=== PATIENT | female | born 1970 | race African-American/Black ===

== ENCOUNTER 2017-06-24 18:22 | Emergency (ER) | payer BC, OTHER ==
[2017-06-24 18:59] LABS: #Basophils 0.1 thou/uL (0.0-0.2); #Eosinphils 0.2 thou/uL (0.0-0.7); #Lymphocytes 2.8 thou/uL (1.20-3.40); #Monocytes 0.5 thou/uL (0.11-0.59); #Neutrophils 2.3 thou/uL (1.40-6.50); %Basophils 1.1 % (0.0-1.0); %Lymphocytes 47.8 % (21.0-51.0); Hematocrit 39.3 % (36.0-47.0); Mean Platelet Volume 6.1 fL (7.4-10.4); Red Blood Cell (RBC) Count 4.31 mill/uL (4.20-5.40); White Blood Cell (WBC) Count 5.9 thou/uL (4.8-10.8)
[2017-06-24 19:22] LABS: ALT (SGPT) 20 U/L (8-55); AST (SGOT) 19 U/L (5-34); Alkaline Phosphatase 75 U/L (40-150); Anion Gap 12 mmol/L (10-20); BUN (Urea Nitrogen) 18 mg/dL (7.0-18.7); Bilirubin, Total 0.3 mg/dL (0.2-1.2); Calc. Creatinine Clearance 0 mL/min (70-130); Calcium 9.6 mg/dL (7.8-10.44); Carbon Dioxide 28 mmol/L (22-29); Chloride 103 mmol/L (98-107); Estimated GFR-MDRD 60; Globulin 3.9 g/dL (2.4-3.5); Protein, Total 7.8 g/dL (6.0-8.3)
[2017-06-24 20:02] LABS: Troponin I Less than 0.010 ng/mL (< 0.028)
[2017-06-24] MEDS ORDERED: Dexamethasone 10 MG/ML VIAL ONE (20:15)
[2017-06-24] MEDS ORDERED: Lorazepam 2 MG/ML VIAL ONE (20:15)
[2017-06-24] MEDS ORDERED: Ketorolac Tromethamine 30 MG/ML VIAL ONE (20:15)
--- NOTE | 2017-06-24 20:59 | RAD ---
THREE VIEWS LEFT SHOULDER: 06/24/17 HISTORY: Left shoulder pain. AP internally, externally and scapular Y-views left shoulder is obtained. Three views left shoulder demonstrates no evidence of left shoulder fractures, subluxations or bony lesions. IMPRESSION: Normal three views left shoulder. POS: [facility]
--- NOTE | 2017-06-24 21:00 | RAD ---
AP VIEW CHEST: 06/24/17 Comparison made to previous exam from 01/01/15. AP view chest demonstrates the lungs to be well aerated. No evidence of active intrathoracic disease seen. No evidence of effusions, pneumonia, or pneumothorax seen. IMPRESSION: Unremarkable AP view chest. POS: [facility]
== END 2017-06-24 21:12 | disposition home or self-care (01) ==
LOC: ERS 18:22
DX: M54.12 Radiculopathy, cervical region (principal); I10 Essential (primary) hypertension; Z79.899 Other long term (current) drug therapy
CPT/HCPCS: 36415; 71010; 80053; 82553; 84484; 85025; 93005; 96374; 96375; J1100; J1885; J2060; J2270

== ENCOUNTER 2017-07-21 11:10 | Emergency (ER) | payer BC ==
[2017-07-21] MEDS ORDERED: Adenosine 6 MG/2 ML VIAL ONE (11:16)
[2017-07-21] MEDS ORDERED: HYDROcodone/Acetaminophen 5/325 mg Tablet ONE (11:45)
[2017-07-21 12:42] LABS: Hematocrit 44.8 % (36.0-47.0); Mean Platelet Volume 7.9 fL (7.4-10.4); Red Blood Cell (RBC) Count 4.77 mill/uL (4.20-5.40); White Blood Cell (WBC) Count 4.7 thou/uL (4.8-10.8)
[2017-07-21 12:58] LABS: Anion Gap 17 mmol/L (10-20); BUN (Urea Nitrogen) 11 mg/dL (7.0-18.7); Calc. Creatinine Clearance 0 mL/min (70-130); Calcium 9.9 mg/dL (7.8-10.44); Carbon Dioxide 19 mmol/L (22-29); Chloride 112 mmol/L (98-107); Estimated GFR-MDRD 74
[2017-07-21 13:14] LABS: Neutrophil 37 % (42-75)
== END 2017-07-21 15:01 | disposition home or self-care (01) ==
LOC: ERS 11:10
DX: R00.0 Tachycardia, unspecified (principal); I10 Essential (primary) hypertension
CPT/HCPCS: 80048; 82553; 84484; 85025; 93005; 96360; J0153

== ENCOUNTER 2017-10-11 07:48 | Outpatient (CLI) | payer BC | END 2017-10-11 07:49 | disposition home or self-care (01) | LOC: BICMRI 07:48 | PROVIDERS: ATTEND Orthopaedic Surgery | DX: M25.512 Pain in left shoulder (principal); M19.012 Primary osteoarthritis, left shoulder; M75.82 Other shoulder lesions, left shoulder ==

== ENCOUNTER 2017-10-22 10:15 | Day surgery (SDC) | payer BC ==
[2017-10-21 10:32] VITALS: BMI 40.7
[2017-10-22] MEDS ORDERED: Fentanyl 100 MCG/2 ML VIAL ONE (11:52)
--- NOTE | 2017-10-22 14:03 | OP ---
DATE OF PROCEDURE: 10/22/2017 PROCEDURES: Esophagogastroduodenoscopy with biopsy, colonoscopy with biopsy. INDICATION FOR PROCEDURE: GERD, dysphagia, screening for malignant neoplasm of the colon. DESCRIPTION OF PROCEDURE: After the risks and benefits of the procedure were explained including ris ks of bleeding, infection, perforation, reactions to anesthesia and/or pain, informed consent was obt ained. Patient was then taken to the endoscopy suite where deep sedation with propofol was administe red via the anesthesia support. The standard gastroscope was then introduced into the mouth with int ubation of the esophagus, stomach and proximal small intestine with findings listed below. The patie nt tolerated the procedure well with no immediate perioperative complications. FINDINGS: ESOPHAGUS: Normal appearing mucosa was seen in the proximal and mid esophagus. Nodular appearing mu cosa was seen at the gastroesophageal junction without evidence of erosions or ulcerations overlying the nodularity. Biopsies were taken from this region for histologic evaluation. Two slight linear e rosions were also seen in the distal esophagus extending approximately 2 cm in length, but not involv ing immediately surrounding esophageal folds. The diaphragmatic pinch was seen at 40 cm while the GE junction as well seen at 38 cm past the incisors noting a 2 cm hiatal hernia. STOMACH: Normal appearing mucosa was seen in the cardia, body, antrum and incisura. A 5-6 mm polyp was seen in the gastric fundus and completely removed with cold snare polypectomy. The polyp was ret rieved and placed in a specimen jar for evaluation. No abnormalities were seen on gastric retroflexi on. There was no evidence of erosions or ulcerations in the segment of the exam. DUODENUM: Normal appearing mucosa was seen in both the duodenal bulb and second portion of the duode num without evidence of erosions, ulcerations, or mass lesions. IMPRESSION: 1. A 5-6 mm gastric polyp, status post cold snare polypectomy and consistent with a fundic gland antoinette yp. 2. LA grade B reflux mediated esophagitis. 3. Nodularity of the gastroesophageal junction concerning for possible Brown's esophagus. 4. No evidence of patient's dysphagia was seen during this examination. COLONOSCOPY: After the risks and benefits of the procedure including risks of infection, bleeding, perforation, re action to anesthesia and/or pain were explained to the patient, informed consent was obtained. The p atient was then taken to the endoscopy suite where deep sedation with propofol via anesthesia support was administered. The standard colonoscope was then introduced into the rectum and advanced all the way to the terminal ileum without difficulty. The quality of the prep was excellent. The patient t olerated the procedure well with no immediate perioperative complications. Digital rectal exam normal. COLON FINDINGS: Normal appearing mucosa was seen in the terminal ileum, appendiceal orifice and ileo cecal valve. A 4-5 mm polyp was seen in the cecum and completely removed with cold snare polypectomy , it was retrieved and placed in a specimen jar for evaluation. A 6-7 mm polyp was seen in the dista l ascending colon and completely removed with cold snare polypectomy. The specimen was retrieved and placed in a specimen jar for evaluation. Multiple small polypoid appearing lymphoid aggregates were seen throughout the entire colon including the transverse, descending and sigmoid colons. Otherwise , the colon mucosa appeared normal in the transverse, descending, sigmoid colon, and rectum. On rect al retroflexion, small internal hemorrhoids (grade I) as well as hypertrophied anal papillae were see n. IMPRESSION: 1. A 4-5 mm cecal polyp, status post cold snare polypectomy. 2. A 6-7 mm ascending colon polyp seen in the distal ascending colon status post cold snare polypect rianna. 3. Innumerable small polypoid appearing lymphoid aggregate seen throughout the entire colon. 4. Small internal hemorrhoids. 5. Hypertrophied anal papillae. RECOMMENDATIONS: 1. Follow up within the GI Clinic in 2 weeks from this procedure. 2. We will follow up on the biopsy results. 3. Would continue PPI administration daily for evidence of reflux mediated esophagitis. 4. Would consider speech pathology evaluation for oropharyngeal dysphagia. 5. Repeat colonoscopy depending on pathology results. 6. Would recommend higher fiber diet given the presence of hemorrhoids.
[2017-10-22] MEDS ORDERED: Propofol 200 MG/20 ML VIAL ONE (14:32)
[2017-10-22] MEDS ORDERED: Lidocaine 1% PF 5 ML VIAL ONE (14:32)
== END 2017-10-22 14:00 | disposition home or self-care (01) ==
LOC: SDC 10:15
PROVIDERS: ATTEND Internal Medicine
PROC: 0DB68ZX Excision of Stomach, Via Natural or Artificial Opening Endoscopic, Diagnostic (ICD-10-PCS; principal; 2017-10-22)
PROC: 0DBK8ZX Excision of Ascending Colon, Via Natural or Artificial Opening Endoscopic, Diagnostic (ICD-10-PCS; principal; 2017-10-22)
PROC: 0DB58ZX Excision of Esophagus, Via Natural or Artificial Opening Endoscopic, Diagnostic (ICD-10-PCS; principal; 2017-10-22)
PROC: 0DBH8ZX Excision of Cecum, Via Natural or Artificial Opening Endoscopic, Diagnostic (ICD-10-PCS; principal; 2017-10-22)
DX: Z12.11 Encounter for screening for malignant neoplasm of colon (principal); K63.5 Polyp of colon; D12.2 Benign neoplasm of ascending colon; K31.7 Polyp of stomach and duodenum; K21.0 Gastro-esophageal reflux disease with esophagitis; K22.10 Ulcer of esophagus without bleeding; K64.0 First degree hemorrhoids; Z91.013 Allergy to seafood
CPT/HCPCS: 88305; 88312; 88313; J2001; J2704; J3010

== ENCOUNTER 2018-04-28 08:33 | Outpatient (CLI) | payer BC ==
--- NOTE | 2018-04-28 10:55 | RAD ---
THREE VIEWS LUMBAR SPINE: Indication: History of lumbar radiculopathy. Comparison: 02-11-08 FINDINGS: There is mild disc degenerative disease which has progressed from the prior exam. Vertebral bodies an d spinal alignment appear within normal limits. No acute fracture is evident. IMPRESSION: Mild disc degenerative disease of the lumbar spine. POS: [facility]
--- NOTE | 2018-04-28 10:59 | RAD ---
THREE VIEWS CERVICAL SPINE: Indication: Cervical radiculopathy. FINDINGS: Cervical spine in the lateral projected up to T1. There is prominent marginal osteophytes involving t he anterior aspect of C4 through C6. Spinal alignment is within normal limits. Lateral masses are sym metric. Lung bases are clear. There are small ribs at the C7 vertebral level. IMPRESSION: 1. No acute osseous abnormality. 2. Mild disc degenerative disease cervical spine. 3. Bilateral C7 cervical ribs. POS: [facility]
== END 2018-04-28 08:34 | disposition home or self-care (01) ==
LOC: RAD 08:33
PROVIDERS: ATTEND Family Medicine
DX: M50.10 Cervical disc disorder with radiculopathy, unspecified cervical region (principal); M51.16 Intervertebral disc disorders with radiculopathy, lumbar region
CPT/HCPCS: 72040; 72100

== ENCOUNTER 2022-07-10 16:23 | Emergency (ER) | payer OTHER ==
[2022-07-10] MEDS ORDERED: Acetaminophen 500 MG TAB ONE (16:42)
[2022-07-10] MEDS ORDERED: Aspirin Chewable 81 MG TAB ONE (16:42)
[2022-07-10] MEDS ORDERED: Dexamethasone 4 MG TAB ONE (16:46)
[2022-07-10] MEDS ORDERED: Ondansetron ODT 4 MG TAB ONE (17:05)
== END 2022-07-10 18:45 | disposition home or self-care (01) ==
LOC: ERS 16:23
DX: J06.9 Acute upper respiratory infection, unspecified (principal); J02.9 Acute pharyngitis, unspecified; I10 Essential (primary) hypertension; Z79.899 Other long term (current) drug therapy
CPT/HCPCS: 71045; 93005; J7620; J8540; Q0162

== ENCOUNTER 2022-09-16 08:44 | Emergency (ER) | payer SELFPAY ==
[2022-09-16 09:17] LABS: Bilirubin Negative (Negative); Blood, Urine Negative (Negative); Clarity Clear (Clear); Glucose, Urine (Dipstick) Normal (Negative); Ketone, Urine Negative (Negative); Leukocyte Negative Leu/uL (Negative); Nitrite Negative (Negative); Protein, Urine (Dipstick) Negative (Neg-Trace); Specific Gravity, Urine 1.004 (1.002-1.036); Urobilinogen Normal mg/dL (Less than 2)
[2022-09-16 10:00] LABS: Hemoglobin 14.4 g/dL (12.0-16.0); Mean Corpuscular HGB CONC 32.5 g/dL (32.0-36.0); Mean Corpuscular Hemoglobin 29.6 pg (27.0-31.0); Mean Corpuscular Volume 90.9 fl (78.0-98.0); Mean Platelet Volume 6.9 fL (7.4-10.4); Platelet Count 256 10x3/uL (130-400); RBC Distribution Width 13.7 % (11.5-14.5); Red Blood Cell (RBC) Count 4.86 mill/uL (4.20-5.40); White Blood Cell (WBC) Count 4.5 10x3/uL (4.8-10.8)
[2022-09-16 10:12] LABS: ALT (SGPT) 35 U/L (8-55); AST (SGOT) 30 U/L (5-34); Albumin 3.9 g/dL (3.5-5.0); Alkaline Phosphatase 71 U/L (40-110); Anion Gap 13 mmol/L (10-20); BUN (Urea Nitrogen) 13 mg/dL (9.8-20.1); Bilirubin, Total 0.5 mg/dL (0.2-1.2); Calc. Creatinine Clearance 0 mL/min (70-130); Calcium 9.2 mg/dL (7.8-10.44); Carbon Dioxide 23 mmol/L (22-29); Chloride 110 mmol/L (98-107); Estimated GFR 78; Globulin 3.7 g/dL (2.4-3.5); Glucose 83 mg/dL (70-105); Potassium 3.8 mmol/L (3.5-5.1); Protein, Total 7.6 g/dL (6.0-8.3); Sodium 142 mmol/L (136-145)
[2022-09-16 10:41] LABS: Band 1 % (5-11); Eosinophils 1 % (0-10); Lymphocytes 57 % (21-51); MDiff Complete? YES; Monocytes 6 % (0-10); Neutrophil 34 % (42-75); RBC Morphology Normal; Reactive Lymphocytes 1 % (0-10)
== END 2022-09-16 13:26 | disposition home or self-care (01) ==
LOC: ERS 08:44
DX: R07.89 Other chest pain (principal); I10 Essential (primary) hypertension
CPT/HCPCS: 36415; 71045; 80053; 81003; 84484; 85025; 93005

== ENCOUNTER 2024-05-29 20:19 | Observation (INO) | payer BC, SELFPAY ==
[~2024-05-29 20:19] MED LIST: Iopamidol-370 76% 500 ML MDV (1 ML CHARGE) ONE
[2024-05-29] MEDS ORDERED: Adenosine 6 mg (2 mL) VIAL ONE ×2 (20:44→20:46)
[2024-05-29] MEDS ORDERED: Metoprolol Tartrate 5 MG (5 mL) VIAL ONE (20:58)
[2024-05-29 21:08] LABS: #Basophils 0.05 10x3/uL (0.0-0.2); %Basophils 0.7 % (0.0-1.0); %Monocytes 7.9 % (0.0-10.0); %Neutrophils 37.4 % (42.0-75.0); Hematocrit 47.7 % (36.0-47.0); Hemoglobin 16.1 g/dL (12.0-16.0); Mean Corpuscular HGB CONC 33.8 g/dL (32.0-36.0); Mean Corpuscular Hemoglobin 30.1 pg (27.0-31.0); Mean Corpuscular Volume 89.3 fL (78.0-98.0); Mean Platelet Volume 8.8 fL (7.4-10.4); Platelet Count 265 10x3/uL (130-400); RBC Distribution Width 14.5 % (11.5-14.5); Red Blood Cell (RBC) Count 5.34 mill/uL (4.20-5.40)
[2024-05-29 21:22] LABS: ALT (SGPT) 16 U/L (8-55); AST (SGOT) 20 U/L (5-34); Albumin 4.3 g/dL (3.5-5.0); Alkaline Phosphatase 96 U/L (40-110); Anion Gap 15 mmol/L (10-20); BUN (Urea Nitrogen) 17 mg/dL (9.8-20.1); Bilirubin, Total 0.6 mg/dL (0.2-1.2); Calc. Creatinine Clearance 0 mL/min (70-130); Calcium 10.6 mg/dL (7.8-10.44); Carbon Dioxide 20 mmol/L (22-29); Chloride 112 mmol/L (98-107); Estimated GFR 54; Globulin 4.6 g/dL (2.4-3.5); Glucose 95 mg/dL (70-105); Lipase 51 U/L (8-78); Potassium 3.8 mmol/L (3.5-5.1); Protein, Total 8.9 g/dL (6.0-8.3); Sodium 143 mmol/L (136-145)
[2024-05-29 21:28] LABS: Troponin I 0.019 ng/mL (< 0.028)
[2024-05-29] MEDS ORDERED: Aspirin Chewable 81 MG TAB ONE (22:43)
[2024-05-29 23:50] LABS: Magnesium 2.3 mg/dL (1.6-2.6)
[2024-05-30 00:23] LABS: Troponin I 0.019 ng/mL (< 0.028)
[2024-05-30] MEDS ORDERED: Ondansetron PF 4 MG/2 ML Vial IVP PRN (01:01)
[2024-05-30] MEDS ORDERED: Acetaminophen 325 MG TAB PO PRN (01:01)
[2024-05-30 03:45] LABS: #Basophils 0.03 10x3/uL (0.0-0.2); %Basophils 0.6 % (0.0-1.0); %Eosinophils 2.2 % (0.0-10.0); %Monocytes 10.7 % (0.0-10.0); %Neutrophils 39.3 % (42.0-75.0); Hematocrit 40.7 % (36.0-47.0); Hemoglobin 13.2 g/dL (12.0-16.0); Mean Corpuscular HGB CONC 32.4 g/dL (32.0-36.0); Mean Corpuscular Hemoglobin 29.8 pg (27.0-31.0); Mean Corpuscular Volume 91.9 fL (78.0-98.0); Mean Platelet Volume 8.8 fL (7.4-10.4); Platelet Count 222 10x3/uL (130-400); RBC Distribution Width 14.7 % (11.5-14.5); Red Blood Cell (RBC) Count 4.43 mill/uL (4.20-5.40)
[2024-05-30 04:06] LABS: Anion Gap 9 mmol/L (10-20); BUN (Urea Nitrogen) 15 mg/dL (9.8-20.1); Calc. Creatinine Clearance 0 mL/min (70-130); Calcium 8.9 mg/dL (7.8-10.44); Carbon Dioxide 20 mmol/L (22-29); Chloride 116 mmol/L (98-107); Estimated GFR 73; Glucose 105 mg/dL (70-105); Potassium 3.4 mmol/L (3.5-5.1); Sodium 142 mmol/L (136-145)
[2024-05-30 04:09] LABS: Troponin I 0.034 ng/mL (< 0.028)
[2024-05-30 08:59] VITALS: TEMP 99.7; BMI 39.9
[2024-05-30] MEDS ORDERED: Metoprolol Tartrate 25 MG TAB ONE (09:26)
[2024-05-30] MEDS ORDERED: Heparin 5,000 UNITS/ML VIAL ONE (09:26)
[2024-05-30] MEDS ORDERED: Aspirin 81 mg Enteric Coated Tablet ONE (09:26)
[2024-05-30] MEDS: Heparin 5,000 UNITS/ML VIAL SC SCH (10:15)
[2024-05-30] MEDS: Metoprolol Tartrate 25 MG TAB PO SCH (10:15)
[2024-05-30] MEDS: Aspirin 81 mg Enteric Coated Tablet PO SCH (10:15)
[2024-05-30 11:35] LABS: Bacteria/HPF None Seen HPF (None Seen); Bilirubin Negative (Negative); Blood, Urine Negative (Negative); CAUTI Indications for Culture Acute Hematuria; Clarity Clear (Clear); Glucose, Urine (Dipstick) Normal (Negative); Ketone, Urine Negative (Negative); Leukocyte Negative Leu/uL (Negative); Nitrite Negative (Negative); Protein, Urine (Dipstick) Negative (Neg-Trace); RBC/HPF 0-3 HPF (0-3); Specific Gravity, Urine 1.023 (1.002-1.036); Squamous Epithelial 0-3 HPF (0-3); Urobilinogen Normal mg/dL (Less than 2); WBC/HPF 0-3 HPF (0-3); pH, Urine 6.5 (5.0-9.0)
[2024-05-30 11:39] LABS: Urine Culture Reflex No No
[2024-05-30 11:53] VITALS: BP 130/87
[2024-05-30] MEDS ORDERED: Non-Formulary Item 1 EACH (Losartan/Hydrochlorothiazide [Losartan-Hctz 100-25 Mg Tab] 1 E PO SCH (21:00)
[2024-05-30] MEDS ORDERED: Losartan 25 MG TAB PO SCH (21:00)
[2024-05-30] MEDS ORDERED: Hydrochlorothiazide 25 MG TAB PO SCH (21:00)
[2024-05-30] MEDS ORDERED: Sertraline 100 MG TAB PO SCH (21:00)
[2024-05-30] MEDS ORDERED: Amlodipine 10 MG TAB PO SCH (21:00)
== END 2024-05-30 11:58 | disposition home or self-care (01) ==
LOC: ERS 20:19 → ERHOLD 23:43
PROVIDERS: ADMIT Student in an Organized Health Care Education/Training Program; ATTEND Internal Medicine
DX: R07.89 Other chest pain (principal); R00.2 Palpitations; I47.10 Supraventricular tachycardia, unspecified; E66.01 Morbid (severe) obesity due to excess calories; Z90.710 Acquired absence of both cervix and uterus; Z91.013 Allergy to seafood; Z88.8 Allergy status to other drugs, medicaments and biological substances
CPT/HCPCS: 36415; 36416; 70450; 71275; 80048; 80053; 81001; 83690; 83735; 83880; 84443; 84484; 85025; 93005; G0378; J0153; J1644; Q9967